=== PATIENT | male | born 1985 | race Caucasian/White ===

== ENCOUNTER 2018-02-15 14:05 | Inpatient (IN) | payer OTHER, SELFPAY ==
[2018-02-15] MEDS ORDERED: Fentanyl 100 MCG/2 ML VIAL ONE ×2 (14:07→15:06)
[2018-02-15] MEDS ORDERED: Adacel (T-DAP) 0.5 ML VIAL ONE (14:41)
[2018-02-15] MEDS ORDERED: CEFAZOLIN/Water 2 GM/20 ML SYRINGE ONE (14:41)
[2018-02-15] MEDS ORDERED: Glycopyrrolate 0.2 MG/ML 5 ML SYRINGE ONE (14:42)
[2018-02-15] MEDS ORDERED: Succinylcholine Chloride 20 MG/ML 10 ml SYRINGE FS ONE (14:42)
[2018-02-15] MEDS ORDERED: Ondansetron HCl/PF 4 MG/2 ML Vial ONE (14:42)
[2018-02-15] MEDS ORDERED: Lidocaine 1% PF 5 ML VIAL ONE (14:42)
[2018-02-15] MEDS ORDERED: Propofol 200 MG/20 ML VIAL ONE (14:42)
[2018-02-15] MEDS ORDERED: diphenhydrAMINE 50 MG/ML VIAL ONE (14:42)
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
[2018-02-15 14:54] LABS: Hemoglobin 15.2 g/dL (14.0-18.0); Mean Corpuscular HGB CONC 33.9 g/dL (32.0-36.0); Mean Corpuscular Hemoglobin 31.6 pg (27.0-31.0); Mean Corpuscular Volume 93.2 fl (80.0-94.0); Mean Platelet Volume 6.6 fL (7.4-10.4); Platelet Count 307 thou/uL (130-400); RBC Distribution Width 11.6 % (11.5-14.5); Red Blood Cell (RBC) Count 4.82 mill/uL (4.70-6.10); White Blood Cell (WBC) Count 26.3 thou/uL (4.8-10.8)
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
[2018-02-15] MEDS ORDERED: Lidocaine 1% w/Epinephrine 1:100K 20 ML VIAL ONE (15:07)
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
[2018-02-15 15:09] LABS: Alcohol Less than 10 mg/dL (Less than 10); Anion Gap 15 mmol/L (10-20); BUN (Urea Nitrogen) 11 mg/dL (8.9-20.6); Calc. Creatinine Clearance 0 mL/min (70-130); Calcium 8.9 mg/dL (7.8-10.44); Carbon Dioxide 19 mmol/L (22-29); Chloride 104 mmol/L (98-107); Estimated GFR-MDRD 87; Glucose 164 mg/dL (70-105); Potassium 3.9 mmol/L (3.5-5.1); Sodium 134 mmol/L (136-145)
[2018-02-15 15:20] LABS: Band 3 % (5-11); Lymphocytes 17 % (21-51); MDiff Complete? YES; Monocytes 6 % (0-10); Neutrophil 73 % (42-75); PLT Morphology Comment Appears Adequate; Reactive Lymphocytes 1 % (0-10)
[2018-02-15] MEDS ORDERED: Clindamycin/D5W 900 mg/50 ml Premix Bag ONE (15:21)
[2018-02-15] MEDS ORDERED: Ondansetron HCl/PF 4 MG/2 ML Vial IVP PRN ×2 (15:38→23:22)
[2018-02-15] MEDS ORDERED: Dextrose 5% in Water 1,000 ML IV PRN (15:38)
[2018-02-15] MEDS ORDERED: hydrALAZINE 20 MG/ML VIAL SLOW IVP PRN (15:38)
[2018-02-15] MEDS ORDERED: Dextrose 50% Abboject 50 ML SYRINGE SLOW IVP PRN (15:38)
[2018-02-15 15:59] LABS: Magnesium 1.8 mg/dL (1.6-2.6)
[2018-02-15 16:07] LABS: Bilirubin Negative (Negative); Blood, Urine Moderate (Negative); Clarity CLEAR (Clear); Glucose, Urine (Dipstick) Negative (Negative); Leukocyte Negative (Negative); Nitrite Negative (Negative); Protein, Urine (Dipstick) 100 mg/dL (Neg-Trace); Urobilinogen 0.2 mg/dL (0.2-1.0)
[2018-02-15 16:08] LABS: Bacteria/HPF None Seen HPF (None Seen); Hyaline Casts/LPF 4-6 HYALINE CAST LPF (0-3 Hyaline); Pathc Cast-AUWi Flag 0.54 (0-2.49); RBC/HPF GREATER THAN 50-TNTC HPF (0-3); Squamous Epithelial 0-3 HPF (0-3); WBC/HPF 0-3 HPF (0-3)
[2018-02-15 16:10] LABS: Renal Epithelial None Seen HPF (0-3); Specific Gravity, Urine 1.043 (1.002-1.036); Transitional Epithelial NONE SEEN HPF (0-3)
[2018-02-15 16:17] LABS: Cocaine Metabolite Screen Not Detected (NotDetected); Medtox Reader # READER 4; Methamphetamine Not Detected (NotDetected); Opiate Screen Not Detected (NotDetected); Phencyclidine (PCP) Not Detected (NotDetected); THC/Cannabinoid Screen Not Detected (NotDetected)
[2018-02-15 16:18] LABS: Amphetamine Detected (NotDetected); Barbiturates Screen Not Detected (NotDetected); Benzodiazepine Screen Not Detected (NotDetected); Medtox Control Line Valid? VALID (VALID); Methadone Not Detected (NotDetected); Oxycodone Screen Not Detected (NotDetected); Tricyclic Screen Not Detected (NotDetected)
[2018-02-15] MEDS ORDERED: Morphine 4 MG/ML VIAL ONE ×3 (16:30→18:44)
[2018-02-15] MEDS ORDERED: CEFAZOLIN/Water 2 GM/20 ML SYRINGE SLOW IVP SCH (16:30)
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
[2018-02-15] MEDS ORDERED: Acetaminophen 1,000 MG in Premix Bag 1 BAG IVPB SCH (16:45)
[2018-02-15] MEDS ORDERED: ISOVUE-370 76%-LOCM 1 ML ONE (16:47)
[2018-02-15] MEDS ORDERED: Morphine 4 MG/ML VIAL SLOW IVP PRN ×2 (17:00)
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
[2018-02-15] MEDS ORDERED: Fentanyl 250 MCG/5 ML VIAL ONE ×2 (19:59→23:22)
[2018-02-15] MEDS ORDERED: Neomycin-Polymyxin 1 ML AMP ONE (20:32)
[2018-02-15] MEDS ORDERED: Famotidine/PF 20 mg/2ml Vial SLOW IVP SCH (21:00)
[2018-02-15] MEDS ORDERED: HYDROmorphone 0.5 MG/0.5 ML SYRINGE ONE ×2 (22:58→23:01)
[2018-02-15] MEDS ORDERED: Promethazine HCl 25 MG/ML VIAL IM PRN (23:22)
[2018-02-15] MEDS ORDERED: Promethazine HCl 25 MG/ML VIAL SLOW IVP PRN (23:22)
[2018-02-16] MEDS: Sodium Chloride 0.9% 1,000 ML IV SCH ×3 (00:42→16:39)
[2018-02-16] MEDS: Clindamycin/D5W 900 MG in Premix Bag 1 BAG IVPB SCH ×4 (00:42→21:00)
[2018-02-16] MEDS: Bacitracin Zinc 1 Packet TOP SCH ×4 (01:17→20:51)
[2018-02-16] MEDS: Acetaminophen 500 MG TAB PO SCH ×4 (01:19→20:50)
[2018-02-16] MEDS: Ketorolac Tromethamine 30 MG/ML VIAL IVP SCH ×4 (01:19→20:51)
[2018-02-16] MEDS: traMADol HCl 50 MG TAB PO SCH ×4 (01:19→20:50)
[2018-02-16 01:45] VITALS: BMI 33.1
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
[2018-02-16 05:43] LABS: #Lymphocytes 1.9 thou/uL (1.20-3.40); #Monocytes 1.2 thou/uL (0.11-0.59); #Neutrophils 9.3 thou/uL (1.40-6.50); %Basophils 0.2 % (0.0-1.0); %Eosinophils 0.3 % (0.0-10.0); %Lymphocytes 15.2 % (21.0-51.0); %Monocytes 9.9 % (0.0-10.0); %Neutrophils 74.4 % (42.0-75.0); Hemoglobin 10.1 g/dL (14.0-18.0); Mean Corpuscular HGB CONC 33.6 g/dL (32.0-36.0); Mean Corpuscular Hemoglobin 32.6 pg (27.0-31.0); Mean Corpuscular Volume 97.1 fl (80.0-94.0); Mean Platelet Volume 7.1 fL (7.4-10.4); Platelet Count 203 thou/uL (130-400); RBC Distribution Width 11.5 % (11.5-14.5); Red Blood Cell (RBC) Count 3.11 mill/uL (4.70-6.10); White Blood Cell (WBC) Count 12.5 thou/uL (4.8-10.8)
[2018-02-16 06:00] LABS: Anion Gap 11 mmol/L (10-20); BUN (Urea Nitrogen) 13 mg/dL (8.9-20.6); Calc. Creatinine Clearance 187 mL/min (70-130); Calcium 7.3 mg/dL (7.8-10.44); Carbon Dioxide 21 mmol/L (22-29); Chloride 109 mmol/L (98-107); Estimated GFR-MDRD Greater than 90; Glucose 107 mg/dL (70-105); Potassium 4.3 mmol/L (3.5-5.1); Sodium 137 mmol/L (136-145)
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
[2018-02-16] MEDS: Famotidine 20 MG TAB PO SCH ×2 (08:20→20:51)
--- NOTE | 2018-02-16 11:54 | RAD ---
RIGHT HAND THREE VIEWS: History: Pain, swelling. DETENTION. Comparison: None. FINDINGS: There is a mildly displaced fracture with angulation along the proximal aspect of the proximal phalan x of the fifth digit. Associated soft tissue swelling deformity. There is a questionable irregularity involving the distal radius, only appreciated on the oblique pro jection. Correlate clinically. Dedicated right wrist radiographic series is recommended. There does a ppear to be soft tissue swelling at the level of the distal radius. IMPRESSION: 1. Fifth digit fracture. 2. Possible distal radius fracture. Dedicated wrist radiographic is recommended. POS: [facility]
--- NOTE | 2018-02-16 16:17 | RAD ---
THREE VIEWS RIGHT SMALL FINGER: Date: 02-16-18 History: Post reduction right fifth digit. Fracture. Comparison: 02-16-18 at 1022 hours. FINDINGS: Previously noted fracture involving the proximal aspect of the proximal phalanx right small finger is again present. Again, there is mild apex volar angulation of the fracture fragments. However, the de gree of angulation has improved from prior study. There is very slight displacement of the distal fra cture fragment anteriorly with respect to the proximal fracture fragment. No other findings. IMPRESSION: 1. Mild improvement in angulation of the previously described fracture involving the proximal phalanx right small finger. 2. Subcutaneous soft tissue swelling dorsal aspect of the hand at the level of the metacarpal phalang eal joints. POS: [facility]
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
[2018-02-16] MEDS: Enoxaparin Sodium 40 MG/0.4 ML SYRINGE SC SCH (20:52)
[2018-02-17] MEDS: Sodium Chloride 0.9% 1,000 ML IV SCH ×3 (01:33→07:33)
[2018-02-17] MEDS: traMADol HCl 50 MG TAB PO SCH ×4 (02:09→21:35)
[2018-02-17] MEDS: Acetaminophen 500 MG TAB PO SCH ×4 (02:09→21:34)
[2018-02-17] MEDS: Ketorolac Tromethamine 30 MG/ML VIAL IVP SCH ×3 (02:09→13:26)
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
[2018-02-17] MEDS: Clindamycin/D5W 900 MG in Premix Bag 1 BAG IVPB SCH ×2 (05:36→13:26)
[2018-02-17 08:08] LABS: Anion Gap 10 mmol/L (10-20); BUN (Urea Nitrogen) 8 mg/dL (8.9-20.6); Calc. Creatinine Clearance 223 mL/min (70-130); Calcium 7.6 mg/dL (7.8-10.44); Carbon Dioxide 24 mmol/L (22-29); Chloride 101 mmol/L (98-107); Estimated GFR-MDRD Greater than 90; Glucose 123 mg/dL (70-105); Potassium 3.7 mmol/L (3.5-5.1); Sodium 131 mmol/L (136-145)
[2018-02-17 08:12] LABS: #Eosinphils 0.3 thou/uL (0.0-0.7); #Lymphocytes 1.3 thou/uL (1.20-3.40); #Monocytes 0.8 thou/uL (0.11-0.59); #Neutrophils 8.9 thou/uL (1.40-6.50); %Basophils 0.3 % (0.0-1.0); %Eosinophils 2.6 % (0.0-10.0); %Lymphocytes 11.8 % (21.0-51.0); %Monocytes 7.3 % (0.0-10.0); Hemoglobin 7.5 g/dL (14.0-18.0); Mean Corpuscular HGB CONC 33.8 g/dL (32.0-36.0); Mean Corpuscular Hemoglobin 32.8 pg (27.0-31.0); Mean Corpuscular Volume 97.1 fl (80.0-94.0); Mean Platelet Volume 7.1 fL (7.4-10.4); Platelet Count 147 thou/uL (130-400); RBC Distribution Width 11.2 % (11.5-14.5); White Blood Cell (WBC) Count 11.4 thou/uL (4.8-10.8)
[2018-02-17 08:14] LABS: Magnesium 1.8 mg/dL (1.6-2.6)
[2018-02-17 08:19] LABS: Phosphorus 1.9 mg/dL (2.3-4.7)
[2018-02-17] MEDS ORDERED: Potassium Phosphate 30 MMOL, Magnesium Sulfate 4 GM in Sodium Chloride 0.9% 250 ML 250 ML IVPB SCH (08:30)
[2018-02-17] MEDS: Famotidine 20 MG TAB PO SCH ×2 (08:39→21:36)
[2018-02-17] MEDS: Bacitracin Zinc 1 Packet TOP SCH ×3 (08:39→21:36)
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
--- NOTE | 2018-02-17 10:51 | OP ---
DATE OF PROCEDURE: 02/16/2018 PREPROCEDURE DIAGNOSES: Right hand fifth digit proximal phalanx fracture, displaced and angulated. POST-PROCEDURE DIAGNOSES: Right hand fifth digit proximal phalanx fracture, displaced and angulated. SUMMARY OF PROCEDURE: The patient with a displaced angulated proximal phalanx fracture of the right 5th digit. Traction pulled on the digit and fracture reduced. The patient was placed in a carlitos taping with Coban and soft splint applied to the hand. Distal neurovascular status intact before and after the procedure and splinting. Post reduction xrays confirm improved alignment of the fracture site. The patient tolerated the procedure well. No complications. KANWAL
[2018-02-17] MEDS ORDERED: Nicotine 21 MG PATCH TD SCH (13:00)
[2018-02-17] MEDS: Ferrous Sulfate 325 MG TAB PO SCH (17:19)
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
[2018-02-17] MEDS: Ibuprofen 800 MG TAB PO SCH (21:34)
[2018-02-17] MEDS: Ascorbic Acid 500 mg Chewable Tablet PO SCH (21:36)
[2018-02-17] MEDS: Enoxaparin Sodium 40 MG/0.4 ML SYRINGE SC SCH (21:36)
[2018-02-17] MEDS ORDERED: Clindamycin 150 MG CAP PO SCH (22:00)
[2018-02-18] MEDS: Acetaminophen 500 MG TAB PO SCH ×4 (01:42→20:22)
[2018-02-18] MEDS: traMADol HCl 50 MG TAB PO SCH ×4 (01:42→20:23)
[2018-02-18] MEDS: Ibuprofen 800 MG TAB PO SCH ×4 (01:43→20:22)
[2018-02-18] MEDS: Ascorbic Acid 500 mg Chewable Tablet PO SCH ×2 (08:29→20:24)
[2018-02-18] MEDS: Ferrous Sulfate 325 MG TAB PO SCH ×2 (08:29→16:55)
[2018-02-18] MEDS: Bacitracin Zinc 1 Packet TOP SCH ×3 (08:30→20:24)
[2018-02-18] MEDS: Famotidine 20 MG TAB PO SCH ×2 (08:30→20:23)
[2018-02-18] MEDS: Nicotine 21 MG PATCH TD SCH ×2 (08:35→11:35)
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
[2018-02-18] MEDS ORDERED: Senokot S 8.6-50 MG TAB PO SCH (11:00)
[2018-02-18] MEDS: Polyethylene Glycol 3350 17 GM Packet PO SCH (11:34)
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
[2018-02-18] MEDS ORDERED: Magnesium Citrate 300 ML BOT PO SCH (16:00)
[2018-02-18] MEDS: Enoxaparin Sodium 40 MG/0.4 ML SYRINGE SC SCH (20:24)
[2018-02-18] MEDS: Senokot S 8.6-50 MG TAB PO SCH (20:32)
[2018-02-19] MEDS: Ibuprofen 800 MG TAB PO SCH ×3 (02:30→14:30)
[2018-02-19] MEDS: traMADol HCl 50 MG TAB PO SCH ×3 (02:30→14:30)
[2018-02-19] MEDS: Acetaminophen 500 MG TAB PO SCH ×3 (02:30→14:30)
[2018-02-19] MEDS: Famotidine 20 MG TAB PO SCH (10:01)
[2018-02-19] MEDS: Ferrous Sulfate 325 MG TAB PO SCH (10:01)
[2018-02-19] MEDS: Bacitracin Zinc 1 Packet TOP SCH ×2 (10:02→14:31)
[2018-02-19] MEDS: Nicotine 21 MG PATCH TD SCH (10:02)
[2018-02-19] MEDS: Ascorbic Acid 500 mg Chewable Tablet PO SCH (10:02)
[2018-02-19] MEDS: Polyethylene Glycol 3350 17 GM Packet PO SCH (10:02)
[2018-02-19] MEDS: Senokot S 8.6-50 MG TAB PO SCH (10:03)
--- NOTE | 2018-02-19 13:43 | ULT ---
ULTRASOUND WITH DOPPLER DUPLEX VENOUS LOWER EXTREMITIES BILATERAL: HISTORY: Bilateral lower extremity edema. TECHNIQUE: Color flow Doppler, spectral waveform analysis of pulsed Doppler, and call-scale imaging with ana cristina brian and augmentation were used to evaluate the bilateral common femoral, femoral, popliteal, posteri or tibial, and superficial femoral veins, and the proximal portions of the profunda femoral and great er saphenous veins. FINDINGS: The right popliteal vein cannot be visualized because it is covered by bandages. There is no DVT in the rest of the bilateral lower extremity veins. IMPRESSION: 1. The right popliteal vein cannot be evaluated. 2. No deep venous thrombosis in the rest of the bilateral deep veins. ERICKSON Díaz POS: [facility]
[2018-02-19 16:02] VITALS: BP 137/76; TEMP 98.1
== END 2018-02-19 17:10 | disposition home or self-care (01) | DRG 481 ==
LOC: ERS 14:05 → SDC/OP 17:52 → EEVIPCON 23:50 → SURG B 23:50
PROVIDERS: ADMIT Specialist; ATTEND Specialist
PROC: 0QS836Z Reposition Right Femoral Shaft with Intramedullary Internal Fixation Device, Percutaneous Approach (ICD-10-PCS; principal; 2018-02-15)
PROC: 0PSL04Z Reposition Left Ulna with Internal Fixation Device, Open Approach (ICD-10-PCS; 2018-02-15)
PROC: 0KDQ0ZZ Extraction of Right Upper Leg Muscle, Open Approach (ICD-10-PCS; 2018-02-15)
PROC: 0JDN0ZZ Extraction of Right Lower Leg Subcutaneous Tissue and Fascia, Open Approach (ICD-10-PCS; 2018-02-15)
PROC: 0PPL04Z Removal of Internal Fixation Device from Left Ulna, Open Approach (ICD-10-PCS; 2018-02-15)
PROC: 0PSJXZZ Reposition Left Radius, External Approach (ICD-10-PCS; 2018-02-15)
PROC: 0HQ1XZZ Repair Face Skin, External Approach (ICD-10-PCS; 2018-02-15)
PROC: 0PSTXZZ Reposition Right Finger Phalanx, External Approach (ICD-10-PCS; 2018-02-16)
DX: S72.351B Displaced comminuted fracture of shaft of right femur, initial encounter for open fracture type I or II (principal); J98.11 Atelectasis; S81.021A Laceration with foreign body, right knee, initial encounter; D62 Acute posthemorrhagic anemia; S52.202A Unspecified fracture of shaft of left ulna, initial encounter for closed fracture; S52.122A Displaced fracture of head of left radius, initial encounter for closed fracture; S62.616A Displaced fracture of proximal phalanx of right little finger, initial encounter for closed fracture; S01.112A Laceration without foreign body of left eyelid and periocular area, initial encounter; V23.4XXA Motorcycle driver injured in collision with car, pick-up truck or van in traffic accident, initial encounter; Z47.2 Encounter for removal of internal fixation device; Z87.81 Personal history of (healed) traumatic fracture; R00.0 Tachycardia, unspecified
CPT/HCPCS: 12013; 36415; 70450; 71045; 71260; 72125; 72170; 74177; 76001; 80048; 80306; 80307; 81003; 81015; 83735; 84100; 85025; 86850; 86900; 86901; 90471; 90715; 93005; 93970; 94640; 96361; 96365; 96375; 96376; 99406; C1713; C1769; G0390; G8978-GP-CM; G8979-GP-CJ; G8987-GO-CL; G8988-GO-CI; J0131; J1170; J1200; J1650; J1885; J1956; J2001; J2270; J2405; J2704; J3010; J3475; J3490; J7050; J7620